=== PATIENT | male | born 1975 | race Caucasian/White ===

== ENCOUNTER 2016-11-02 12:05 | Emergency (ER) | payer OTHER ==
[~2016-11-02] VITALS: Ht 177.8 cm; Wt 85.7 kg
--- NOTE | ~2016-11-02 | CT2 ---
[facility] A Service of [facility] RADIOLOGY TEXT RESULTS PATIENT: ABHIJEET MADDOX LOCATION: [facility] : 73 UNIT #: [id number] AGE: [address]: Ashok Shafer MD SEX: M ORDER DR: [id number] [facility] [address] [place], [place] [address] [id number] MR#: [id number] #: [id number] NAME: ABHIJEET MADDOX : 1975 SEX: M STUDY DATE/TIME: 11/02/2016 14:30 UNIT: [facility] ROOM: STUDY DESCRIPTION: CT Abd and Pelv W Cont Attending Physician: Ashok Shafer M.D. Ordering Physician: Ashok Shafer M.D. Primary Care Physician: Primary Care Physician No MEDICAL IMAGING REPORT This report is preliminary unless electronic signature is present EXAM CT abdomen and pelvis with contrast HISTORY Lower abdominal pain for 2 weeks. No recent bowel movements. COMPARISON None. FINDINGS Axial images performed through the abdomen and pelvis following IV and oral contrast. Multiplanar reconstructions. This CT exam was performed with one or more of the following radiation dose reduction techniques: Automatic exposure control, adjustment of mA and/or kV according to patient size, and iterative reconstruction. ABDOMEN: Lung bases remarkable for a small amount of right basilar atelectasis or infiltrate. No effusions. Liver demonstrates diffuse fatty infiltration. Spleen unremarkable. The gallbladder is distended. Pancreas, kidneys and adrenal glands unremarkable. Nzgdh-gl-trlpglhv amount of ascites. Increased small and large bowel gas and fluid, but the presence of contrast extending all the way to the rectum excludes a high-grade obstruction. There is diffuse colonic wall thickening, nonspecific; this is most prominent in the descending colon. This could represent a component of colitis, but is nonspecific and does not appear to correspond to the patient's clinical symptoms. Retroperitoneum unremarkable. PELVIS: Bladder, prostate appear normal. Osseous structures remarkable for high-grade spinal stenosis L3-4. This is due to a combination of disc protrusion and facet disease. IMPRESSION [facility] A Service of [facility] RADIOLOGY TEXT RESULTS PATIENT: ABHIJEET MADDOX [id number] 73 UNIT #: [id number] AGE: [address]: Ashok Shafer MD SEX: M ORDER DR: 1. Diffuse fatty infiltration of liver with a moderate amount of ascites. This could be indicative of underlying hepatic dysfunction, correlate clinically. 2. Increased small and large bowel gas and fluid, but the presence of contrast all the way to the rectum excludes a high-grade obstruction. There is diffuse colonic wall thickening. This is nonspecific could represent colitis, but this does not appear to fit with the patient's clinical presentation, this could be related to hypoproteinemia and third spacing of fluid. Further evaluation with colonoscopy may be warranted. 3. Focal parenchymal opacity right lower lobe probably infectious in etiology or represent atelectasis. Clinical and imaging followup is recommended to confirm resolution, as underlying neoplastic process cannot be entirely excluded. Dictated by... Gloria Stanley M.D. THIS IS AN ELECTRONICALLY VERIFIED REPORT Gloria Stanley M.D. at 11/02/2016 10:02 PM [place]/justin TD: 11/02/2016 16:58 JOB #: [id number] MEDICAL IMAGING REPORT Page 1 of 1 COPY
[~2016-11-02 12:05] MED LIST: ATIVAN0.5 MG PO; BENTYL10 MG PO; LISINOPRIL-HCTZ1 T16 PO; MULTI-VITAMIN1 EAC1 PO; ZOFRAN PO
[2016-11-02 12:49] LABS: BASOPHIL# 0.1 X10e3 (0-0.3); BASOPHIL% 0.9 % (0-2.5); DIFF IND YES; EOSINOPHIL# 0.1 X10e3 (0-0.7); EOSINOPHIL% 0.6 % (0.0-7.0); HEMOGLOBIN 13.4 gm/dL (13.0-16.0); LYMPHOCYTE# 5.7 X10e3 (1.0-3.5); LYMPHOCYTE% 63.4 % (17.0-45.0); MEAN CELL VOLUME 99.1 FL (83-96); MEAN CORPUSCULAR HEMOGLOBIN 34.8 PG (28-34); MEAN CORPUSCULAR HGB CONC 35.2 g/dL (30-36); MEAN PLATELET VOLUME 8.7 FL (6.5-11.5); MONOCYTE# 0.5 X10e3 (0-1.0); NEUTROPHIL# 2.6 X10e3 (1.5-7.1); NEUTROPHIL% 29.1 % (40-75); PLATELET COUNT 213 X10e3 (140-420); RED BLOOD COUNT 3.83 X10e (3.90-5.60); RED CELL DISTRIBUTION WIDTH 23.9 % (11.0-15.5)
[2016-11-02 13:11] LABS: ALBUMIN SERUM 2.6 g/dL (3.5-5.0); BILIRUBIN, DIRECT 2.7 mg/dL (0.0-0.2); BILIRUBIN,INDIRECT 2.4 mg/dL (0.0-0.9); BILIRUBIN,TOTAL 5.1 mg/dL (0.2-2.0); CALCIUM SERUM 7.7 mg/dL (8.4-10.2); CREATININE SERUM 0.8 mg/dL (0.6-1.4); GLOM FILT RATE Estimated 110.2 mL/min (>60); POTASSIUM 3.3 mmol/L (3.5-5.1); PROTEIN TOTAL SERUM 6.1 g/dL (6.0-8.3)
[2016-11-02 13:14] LABS: PLATELET ESTIMATE NORMAL (NORMAL); TARGET CELLS MOD
[2016-11-02 13:15] LABS: HYPOCHROMIA SL
== END 2016-11-02 15:24 | disposition home or self-care (01) ==
LOC: CED 12:05
PROVIDERS: Emergency Medicine
DX: K52.9 Noninfective gastroenteritis and colitis, unspecified (principal); I10 Essential (primary) hypertension; F17.200 Nicotine dependence, unspecified, uncomplicated; Z79.899 Other long term (current) drug therapy
CPT/HCPCS: 36415; 74177; 80048; 80076; 82140; 82150; 83690; 85025; 99284; Q9967

== ENCOUNTER 2016-11-25 11:52 | Inpatient (IN) | payer OTHER ==
[~2016-11-25] VITALS: Ht 177.8 cm; Wt 89.0 kg
--- NOTE | ~2016-11-25 | DS ---
Unit #: [id number] #: [id number] Patient: ABHIJEET MADDOX [id number] [address] [address] [id number] I MR#: [id number] NAME: ABHIJEET MADDOX ROOM: 560 Age: 41 Sex: M Admission Date: 11/25/2016 : 1975 Discharge Date: 11/29/2016 Attending Physician: Shahram Carpenter M.D. Primary Care Physician: No Primary Care Physician DISCHARGE SUMMARY REASON FOR ADMISSION Vomiting/elevated blood pressure. HISTORY OF PRESENT ILLNESS/HOSPITAL COURSE 41-year-old male, underlying history of chronic alcohol abuse, alcoholic hepatitis, hypertension, relatively noncompliant with medications, presented secondary to intractable nausea, vomiting, diarrhea and increased abdominal pain. He was noted to have an elevated blood pressure on day of admission. He was appropriately treated secondary to elevated blood pressure, was continued on p.o. medications secondary to chronic alcohol abuse. He was placed initially on CIFL protocol and telemetry floor. He has otherwise done well, has had no acute need for IV medications over the past 24 hours. He appears clinically stable. He is alert and oriented x3. His blood pressure has since then been more stable and he is clinically stable for discharge home. Overall, his prognosis is guarded at best secondary to his lack of insight into disease process. I have encouraged him strongly to abstain from further alcohol use. I have encouraged him to follow up with primary care physician in regards to his blood pressure issues. At time of discharge, his LFTs show an AST and ALT of 126 and 70 respectively. His albumin level is 2.3. Hemoglobin 12.5, MCV 106, platelets are 137. FINAL DISCHARGE DIAGNOSIS 1. Intractable nausea, vomiting, now resolved, likely viral gastroenteritis. 2. Accelerated hypertension on admission, now resolved. 3. Longstanding history of noncompliance. 4. Alcohol abuse. 5. Alcoholic hepatitis. FINAL DISCHARGE MEDICATIONS 1. Librium 25 mg p.o. b.i.d. x5 days. 2. Multivitamin daily. 3. Norvasc 10 mg p.o. daily. DISCHARGE CONDITION Stable. DISCHARGE DISPOSITION Home. Unit #: [id number] #: [id number] Patient: ABHIJEET MADDOX Follow up PCP 7-10 days. Dictated by... Imran S. Gregg, M.D. ISN/travon TD: 12/01/2016 16:54 JOB #: [id number] DISCHARGE SUMMARY Page 1 of 1 X Milena Escobedo MD X DISCHARGE SUMMARY
--- NOTE | ~2016-11-25 | HP ---
Unit #: [id number] #: [id number] Patient: ABHIJEET MADDOX [id number] [facility]. [place], [place] [address] [id number] I MR#: [id number] NAME: ABHIJEET MADDOX ROOM: 560 Age: 41 Sex: M Admission Date: 11/25/2016 : 1975 Attending Physician: Analia Lacey M.D. HISTORY AND PHYSICAL CHIEF COMPLAINT Vomiting, elevated blood pressure. HISTORY OF PRESENT ILLNESS The patient is a 41-year-old male with a past medical history of alcohol abuse, alcoholic hepatitis, and hypertension, who presented to the emergency department for evaluation of the above. The patient states that his last drink was on November 23, 2016, and consisted of six beers. He states that since that time he has had nausea, vomiting, diarrhea, and abdominal pain. He describes the abdominal pain as "tight." It is in the lower abdomen. There are no exacerbating or alleviating factors. He denies chest pain, no cough, no fever. He denies blood in the stool or black tarry stool. He has had chills but no documented fever. In the emergency department, initial pulse and blood pressure were 100 and 165/109, respectively. He received one liter of normal saline, as well as 40 mg of Protonix, 4 mg of Zofran, a total of 3 mg of Ativan, 25 mg of Librium, and 25 mg of Phenergan. Laboratory is notable for AST and ALT of 480 and 176, respectively, alkaline phosphatase 305, and total bilirubin 4.9. He is being admitted to [facility] for evaluation and further treatment. PAST MEDICAL HISTORY 1. Admission to [facility] in March 2016 for seizure. There are no records, but per the patient, it sounds like it was related to alcohol withdrawal. He was not placed on any antiepileptic medication. He has not had a seizure since that time. 2. Admission to [facility] February 03-2014, for alcoholic liver disease. 3. Hypertension. PAST SURGICAL HISTORY Chest tube placement and removal. SOCIAL HISTORY The patient lives with his parents. He smokes a half pack of cigarettes daily. He drinks a six-pack daily. His last drink was November 23, 2016. He denies illicit drug use. He works at the [employer]. FAMILY HISTORY Notable for both parents having myocardial infarctions in their 60s. His dad also has congestive heart failure. Unit #: [id number] #: [id number] Patient: ABHIJEET MADDOX ALLERGIES No known allergies. HOME MEDICATIONS 1. Lisinopril and hydrochlorothiazide 20/25 daily. 2. Multivitamin daily. 3. Zofran 4 mg q.6 hours p.r.n. 4. Bentyl 10 mg t.i.d. p.r.n. 5. Ativan 0.5 mg t.i.d. p.r.n. REVIEW OF SYSTEMS A complete review of systems is negative except as indicated in the HPI. The patient states that he is interested in rehab. He was in rehab in 2012. He denies ever having ascites. He has never had a paracentesis. He also denies ever having endoscopy. PHYSICAL EXAMINATION VITAL SIGNS: Temperature is 98.4, pulse 100, respirations 18, blood pressure 165/109, and oxygen saturation 100% on room air. GENERAL: Patient is a male who is awake, alert, and in no acute distress. HEENT: Head is atraumatic. Sclerae are icteric. NECK: Supple. Trachea is midline. CARDIOVASCULAR: Tachycardic in the 110s. He does have a 3/6 systolic ejection murmur. LUNGS: Clear to auscultation bilaterally with no increased work of breathing. ABDOMEN: Soft and nontender with bowel sounds present in all four quadrants. EXTREMITIES: Nontender with no pedal edema. NEUROLOGIC: Patient is awake and alert. He follows commands. He is somewhat tremulous. PSYCHIATRIC: Mood and affect are normal. Patient is cooperative. SKIN: Skin of examined areas is warm and dry. DIAGNOSTIC STUDIES LABORATORY: Complete blood count is notable for MCV of 104.9 with hemoglobin of 14.7. Comprehensive metabolic panel notable for sodium of 130, chloride 92, glucose 120, BUN and creatinine 8 and 1.1, respectively, calcium is 7.9, AST and ALT 480 and 176, respectively, alkaline phosphatase 305, total bilirubin 4.9, and albumin is 3. Lipase 32. Urinalysis notable for trace leukocyte esterase and trace protein. ASSESSMENT The patient is a 41-year-old male with: 1. Nausea, vomiting, and diarrhea. 2. Alcohol withdrawal. The patient received 25 mg of Librium in the emergency department. 3. Alcoholic hepatitis. The patient's AST and ALT are 480 and 176, respectively. AST has been in the 300s, most recently 314 on November 02, 2016. It is 480 today. ALT has been in the 100s, most recently 112 on November 02, 2016. It is 176 today. Alkaline phosphatase 305 today. It has been in the 300-400 range, 328 on November 02, 2016. 4. Hypertension. 5. Murmur. 6. Tobacco abuse. Unit #: [id number] #: [id number] Patient: ABHIJEET MADDOX PLAN 1. Admit for observation to intermediate level. 2. Advance diet to liquids as tolerated. 3. P.r.n. Zofran. 4. Alcohol withdrawal protocol to start now. 5. Librium 25 mg p.o. q.6 hours. 6. Check magnesium level. 7. EKG and cardiac enzymes. 8. P.r.n. hydralazine. 9. Check INR. 10. A 2D echo for further evaluation of murmur. 11. Consult Dr. Gonzáles regarding alcohol abuse. 12. Repeat labs in the morning including INR and magnesium. 13. SCDs for DVT prophylaxis. 14. Additional workup and consultants based on above. 1. Dictated by Pushpa Eduardo/david TD: 11/25/2016 21:50 JOB #: [id number] HISTORY AND PHYSICAL Page 1 of 1 X Analia Lacey MD X HISTORY AND PHYSICAL
--- NOTE | ~2016-11-25 | CO ---
Unit #: [id number] #: [id number] Patient: HILARIO MADODX [id number] [facility] [address] [place], [place] [address] [id number] I MR#: [id number] NAME: HILARIO MADDOX ROOM: 560 Age: 41 Sex: M Admission Date: 11/25/2016 : 1975 Attending Physician: Shahram Carpenter M.D. Consultation Date: 11/26/2016 CONSULTATION REPORT DISCUSSION Hilario Maddox is a 41-year-old male, seen on 11/26/2016 in room 561 on 11/26/2016 at [facility]. The patient was dressed in hospital attire, lying comfortably in bed. The patient reported that he was drinking 6 beers a day. Currently, having withdrawal symptoms, anxious, nervous, sad, and depressed, but denied any thoughts of harming self or others. Denied any psychotic symptom or any suicidal or homicidal ideation. The patient's vital signs; temperature 97.6, pulse 85, respirations 18, blood pressure 157/108, and oxygen saturation 100%. The patient was admitted with vomiting and elevated blood pressure. The patient reported alcohol abuse, alcohol hepatitis, hypertension. The patient denied any use of any illicit drugs. PAST PSYCHIATRIC HISTORY Remarkable for history of alcohol abuse. No history of any depression or suicide attempt. MEDICAL HISTORY History of alcohol liver disease, history of seizure in 03/2016, hypertension. MEDICATION HISTORY The patient is on lisinopril, Zofran, Bentyl, Ativan p.r.n. FAMILY HISTORY AND SOCIAL HISTORY The patient reports that he has a good support system. No history of abuse. History of alcohol abuse as mentioned above. REVIEW OF SYSTEMS Complete review of system is unremarkable. MENTAL STATUS EXAMINATION Vital signs; temperature 98.6, pulse 78, respirations 18, blood pressure 128/88. General appearance; the patient dressed casually, lying comfortably in bed, seemed somewhat anxious. Attention span and concentration, fair. Speech, regular rate and coherent. Oriented in time, place, and person. Mood and affect, sad and dysphoric. Thought process, coherent. Thought content, the patient denied any thoughts of harming self or others. Denied any hallucination. Recent and remote memory, fair. Language, intact. Fund of knowledge, fair. Insight and judgment, fair to slightly impaired. DIAGNOSES Psychiatric: Alcohol use disorder, severe, F10.20; mood disorder, not Unit #: [id number] #: [id number] Patient: HILARIO MADDOX otherwise specified, F32.9. Secondary diagnosis: Deferred. Medical diagnosis: Please refer to H and P. Stressors: Psychosocial stressor. ASSESSMENT/PLAN 1. Supportive psychotherapy and psychoeducation provided to the patient. 2. Educated about benefits and side effects of medication and course and prognosis of illness. 3. Advised to continue with the CIWA protocol. If needed, consider further adjustment of medication. Plan to stabilize the patient and consider follow up in [facility] program at [facility] and also given telephone #[phone]. Please feel free to call if any questions, telephone #[phone]. Dictated by... Pushpa Rodriguez/abhay TD: 11/27/2016 19:53 JOB #: [id number] CONSULTATION REPORT Page 1 of 1 X Tyrone Gonzáles MD X CONSULTATION REPORT
--- NOTE | ~2016-11-25 | EKG ---
PATIENT: ABHIJEET MADDOX UNIT #: [id number] Ventricular Rate: 107 BPM Atrial Rate: 107 BPM P-R Interval: 142 ms QRS Duration: 82 ms Q-T Interval: 360 ms QTC Calculation(Bezet): 480 ms P [place]: 50 degrees Calculated R [place]: 0 degrees Calculated T [place]: 36 degrees Diagnosis Line: Sinus tachycardia Diagnosis Line: Otherwise normal ECG Diagnosis Line: No previous ECGs available Diagnosis Line: Confirmed by TIMOTEO PEREZ MD ([id number]) on 11/26/2016 Diagnosis Line: 7:18:15 PM INTERPRETING MD: ANA HADLEY
--- NOTE | ~2016-11-25 | CR63 ---
[facility] A Service of [facility] RADIOLOGY TEXT RESULTS PATIENT: ABHIJEET MADDOX LOCATION: B 560-01 : [birth year] UNIT #: [id number] AGE: [address]: Shahram Carpenter MD SEX: M ORDER DR: [id number] [facility] [address] [place], [place] [address] [id number] I MR#: [id number] Acc #: [id number] NAME: ABHIJEET MADDOX : 1975 SEX: M STUDY DATE/TIME: 11/27/2016 16:37 UNIT: [facility] ROOM: [facility] STUDY DESCRIPTION: CR Chest 2 View Attending Physician: Shahram Carpenter M.D. Ordering Physician: Shahram Carpenter M.D. Primary Care Physician: Primary Care Physician No MEDICAL IMAGING REPORT This report is preliminary unless electronic signature is present EXAM Two-view chest HISTORY Back pain, cough, shortness of air for 2 days. FINDINGS Two views of the chest demonstrates bibasilar atelectasis. Mid and upper lung zones are clear. Heart and mediastinum unremarkable. No invasive tubes or lines. No pneumothorax. Osseous structures unremarkable. IMPRESSION Bibasilar atelectasis. Dictated by... Gloria Stanley M.D. THIS IS AN ELECTRONICALLY VERIFIED REPORT Gloria Stanley M.D. at 11/28/2016 6:54 PM [place]/elsa TD: 11/27/2016 22:43 JOB #: [id number] MEDICAL IMAGING REPORT Page 1 of 1 COPY
--- NOTE | ~2016-11-25 | CO ---
Unit #: [id number] #: [id number] Patient: HILARIO MADDOX [id number] [facility] [address] [place], [place] [address] [id number] I MR#: [id number] NAME: HILARIO MADDOX ROOM: 560 Age: 41 Sex: M Admission Date: 11/25/2016 : 1975 Attending Physician: Shahram Carpenter M.D. Consultation Date: 11/28/2016 CONSULTATION REPORT REASON FOR CONSULTATION Followup. DISCUSSION Mr. Hilario Maddox is a 41-year-old white male, seen in room 560, bed 1 on 11/28/2016 at [facility]. The patient was admitted with nausea, vomiting, diarrhea, and alcohol withdrawal. The patient reports that he is feeling better, dressed casually in hospital attire, lying comfortably in bed. The patient denied any thoughts of harming self or others, but agreeable to come [facility]. The patient's vital signs; temperature 97.8, pulse 91, respirations 16, blood pressure 159/113, and oxygen saturation 97%. REVIEW OF SYSTEMS Complete review of system unremarkable. MENTAL STATUS EXAMINATION General appearance; the patient dressed casually, lying comfortably in bed. Attention span and concentration, fair. Speech, regular rate and coherent. Oriented in time, place, and person. Mood and affect; sad, dysphoric, anxious. Thought process, coherent. Thought content, the patient denied any thoughts of harming self or others. Recent and remote memory, fair. Language, intact. Fund of knowledge, fair. Insight and judgment, fair to slightly impaired. DIAGNOSES Psychiatric: Alcohol use disorder, severe, F10.20; major depressive disorder, recurrent, severe, F32.9. Secondary diagnosis: Deferred. Medical diagnosis: Please refer to H and P. ASSESSMENT/PLAN 1. Supportive psychotherapy and psychoeducation provided to the patient. 2. Educated about benefits and side effects of medication and course and prognosis of illness. Continue with current treatment protocol. If needed, consider further adjustment of medication. The patient to follow up at [facility] upon discharge and given information and telephone #[phone]. Please feel free to call if any question, telephone #[phone]. Unit #: [id number] #: [id number] Patient: HILARIO MADDOX Dictated by... Pushpa Rodriguez/abhay TD: 11/28/2016 17:45 JOB #: [id number] CONSULTATION REPORT Page 1 of 1 X Tyrone Gonzáles MD X CONSULTATION REPORT
[2016-11-25 12:31] LABS: BASOPHIL# 0.1 X10e3 (0-0.3); EOSINOPHIL% 0.5 % (0.0-7.0); HEMATOCRIT 42.5 % (38.0-50.0); HEMOGLOBIN 14.7 gm/dL (13.0-16.0); LYMPHOCYTE% 41.9 % (17.0-45.0); MEAN CELL VOLUME 104.9 FL (83-96); MEAN CORPUSCULAR HEMOGLOBIN 36.3 PG (28-34); MEAN CORPUSCULAR HGB CONC 34.6 g/dL (30-36); MEAN PLATELET VOLUME 8.7 FL (6.5-11.5); MONOCYTE# 0.5 X10e3 (0-1.0); MONOCYTE% 5.4 % (3.0-12.0); NEUTROPHIL# 4.9 X10e3 (1.5-7.1); NEUTROPHIL% 51.2 % (40-75); PLATELET COUNT 251 X10e3 (140-420); RED BLOOD COUNT 4.05 X10e (3.90-5.60); RED CELL DISTRIBUTION WIDTH 16.5 % (11.0-15.5); WHITE BLOOD COUNT 9.6 X10e3 (4.0-10.5)
[2016-11-25 12:35] LABS: DIFF IND NO
[2016-11-25 13:52] LABS: BILIRUBIN, DIRECT 2.6 mg/dL (0.0-0.2); BILIRUBIN,INDIRECT 2.3 mg/dL (0.0-0.9); BILIRUBIN,TOTAL 4.9 mg/dL (0.2-2.0); BUN/CREATININE RATIO 7.27; CALCIUM SERUM 7.9 mg/dL (8.4-10.2); CREATININE SERUM 1.1 mg/dL (0.6-1.4); GLOM FILT RATE Estimated 82.4 mL/min (>60); POTASSIUM 3.6 mmol/L (3.5-5.1); PROTEIN TOTAL SERUM 6.8 g/dL (6.0-8.3)
[2016-11-25 15:23] LABS: URINE SOURCE CLEAN CATCH
[2016-11-25 15:34] LABS: URINE APPEARANCE CLEAR; URINE BLOOD NEG (NEG); URINE COLOR DK YELLOW; URINE GLUCOSE NEG (NEG); URINE KETONE NEG (NEG); URINE LEUKOCYTE ESTERASE TRACE (NEG); URINE NITRATE NEG (NEG); URINE PROTEIN TRACE (NEG); URINE SPECIFIC GRAVITY 1.024 (1.003-1.035)
[2016-11-25 15:37] LABS: U HYALINE CASTS AUWI 0-2 /[LPF]; URINE BACTERIA AUWI NEG (NEGATIVE); URINE SQUAMOUS EPITHELIAL CELL NONE SEEN /[HPF]; UWBCS1 AUWI 0-2 (0-5)
[2016-11-25 15:57] LABS: CULTURE INDICATED? NO; URINE BILIRUBIN POS (NEG)
[2016-11-25 15:58] LABS: URINE ICTOTEST POS (NEG)
[2016-11-25 20:55] LABS: %MB 2.6 % (0.0-4.0); MB 6.2 ng/ml
[2016-11-26 01:33] LABS: HEMATOCRIT 36.3 % (38.0-50.0); MEAN CELL VOLUME 104.8 FL (83-96); MEAN CORPUSCULAR HEMOGLOBIN 35.9 PG (28-34); MEAN CORPUSCULAR HGB CONC 34.2 g/dL (30-36); MEAN PLATELET VOLUME 9.1 FL (6.5-11.5); RED BLOOD COUNT 3.46 X10e (3.90-5.60); RED CELL DISTRIBUTION WIDTH 16.3 % (11.0-15.5); WHITE BLOOD COUNT 7.2 X10e3 (4.0-10.5)
[2016-11-26 01:35] LABS: HEMOGLOBIN 12.4 gm/dL (13.0-16.0)
[2016-11-26 02:14] LABS: ALBUMIN SERUM 2.4 g/dL (3.5-5.0); BILIRUBIN,TOTAL 4.9 mg/dL (0.2-2.0); BUN/CREATININE RATIO 8.88; CALCIUM SERUM 7.4 mg/dL (8.4-10.2); CREATININE SERUM 0.9 mg/dL (0.6-1.4); MAGNESIUM 1.2 mg/dL (1.6-3.0); POTASSIUM 3.5 mmol/L (3.5-5.1); PROTEIN TOTAL SERUM 5.6 g/dL (6.0-8.3)
[2016-11-26 02:31] LABS: %MB 2.4 % (0.0-4.0); MB 4.9 ng/ml
[2016-11-26 07:52] LABS: HEMOGLOBIN 12.4 gm/dL (13.0-16.0); MEAN CELL VOLUME 104.5 FL (83-96); MEAN CORPUSCULAR HGB CONC 35.4 g/dL (30-36); RED BLOOD COUNT 3.35 X10e (3.90-5.60); WHITE BLOOD COUNT 5.5 X10e3 (4.0-10.5)
[2016-11-26 08:33] LABS: ALBUMIN SERUM 2.3 g/dL (3.5-5.0); BILIRUBIN,TOTAL 5.1 mg/dL (0.2-2.0); BUN/CREATININE RATIO 8.88; CALCIUM SERUM 7.5 mg/dL (8.4-10.2); CREATININE SERUM 0.9 mg/dL (0.6-1.4); MAGNESIUM 1.2 mg/dL (1.6-3.0); POTASSIUM 3.7 mmol/L (3.5-5.1); PROTEIN TOTAL SERUM 5.4 g/dL (6.0-8.3)
[2016-11-26 09:15] LABS: %MB 2.5 % (0.0-4.0); MB 3.8 ng/ml
[2016-11-27 05:37] LABS: HEMOGLOBIN 12.2 gm/dL (13.0-16.0); MEAN CELL VOLUME 105.4 FL (83-96); MEAN CORPUSCULAR HEMOGLOBIN 36.7 PG (28-34); MEAN CORPUSCULAR HGB CONC 34.8 g/dL (30-36); MEAN PLATELET VOLUME 9.5 FL (6.5-11.5); RED BLOOD COUNT 3.32 X10e (3.90-5.60); RED CELL DISTRIBUTION WIDTH 15.8 % (11.0-15.5); WHITE BLOOD COUNT 4.4 X10e3 (4.0-10.5)
[2016-11-27 05:43] LABS: ALBUMIN SERUM 2.2 g/dL (3.5-5.0); BILIRUBIN,TOTAL 3.7 mg/dL (0.2-2.0); BUN/CREATININE RATIO 8.57; CALCIUM SERUM 7.7 mg/dL (8.4-10.2); CREATININE SERUM 0.7 mg/dL (0.6-1.4); GLOM FILT RATE Estimated 116.4 mL/min (>60); MAGNESIUM 1.5 mg/dL (1.6-3.0); POTASSIUM 3.7 mmol/L (3.5-5.1); PROTEIN TOTAL SERUM 5.4 g/dL (6.0-8.3)
[2016-11-27 15:13] LABS: AMPHETAMINE NEG (NEG); BARBITURATES NEG (NEG); BENZODIAZEPINES POS (NEG); COCAINE NEG (NEG); MARIJUANA NEG (NEG); OPIATES NEG (NEG); TRICYCLIC ANTIDEPRESSANTS NEG (NEG); U METHADONE NEG (NEG)
[2016-11-28 06:32] LABS: MEAN CELL VOLUME 106.2 FL (83-96); MEAN CORPUSCULAR HEMOGLOBIN 36.3 PG (28-34); MEAN CORPUSCULAR HGB CONC 34.2 g/dL (30-36); MEAN PLATELET VOLUME 9.6 FL (6.5-11.5); RED BLOOD COUNT 3.29 X10e (3.90-5.60); RED CELL DISTRIBUTION WIDTH 15.3 % (11.0-15.5); WHITE BLOOD COUNT 4.4 X10e3 (4.0-10.5)
[2016-11-28 07:08] LABS: ALBUMIN SERUM 2.1 g/dL (3.5-5.0); BILIRUBIN,TOTAL 3.2 mg/dL (0.2-2.0); BUN/CREATININE RATIO 8.57; CREATININE SERUM 0.7 mg/dL (0.6-1.4); GLOM FILT RATE Estimated 116.4 mL/min (>60); MAGNESIUM 1.6 mg/dL (1.6-3.0); POTASSIUM 3.7 mmol/L (3.5-5.1); PROTEIN TOTAL SERUM 5.2 g/dL (6.0-8.3)
[2016-11-29 05:33] LABS: HEMOGLOBIN 12.5 gm/dL (13.0-16.0); MEAN CELL VOLUME 106.4 FL (83-96); MEAN CORPUSCULAR HEMOGLOBIN 36.8 PG (28-34); MEAN CORPUSCULAR HGB CONC 34.6 g/dL (30-36); MEAN PLATELET VOLUME 9.8 FL (6.5-11.5); RED BLOOD COUNT 3.39 X10e (3.90-5.60); RED CELL DISTRIBUTION WIDTH 15.8 % (11.0-15.5); WHITE BLOOD COUNT 5.7 X10e3 (4.0-10.5)
[2016-11-29 06:43] LABS: ALBUMIN SERUM 2.3 g/dL (3.5-5.0); BILIRUBIN,TOTAL 2.9 mg/dL (0.2-2.0); BUN/CREATININE RATIO 8.88; CALCIUM SERUM 8.1 mg/dL (8.4-10.2); CREATININE SERUM 0.9 mg/dL (0.6-1.4); MAGNESIUM 1.7 mg/dL (1.6-3.0); POTASSIUM 3.3 mmol/L (3.5-5.1); PROTEIN TOTAL SERUM 5.6 g/dL (6.0-8.3)
[2016-11-29] MEDS ORDERED: NORVASC10 MG PO (09:50)
[2016-11-29] MEDS ORDERED: LIBRIUM25 MG PO (09:51)
== END 2016-11-29 13:57 | disposition home or self-care (01) | DRG 897 ==
LOC: CED 11:52 → CEDOF 19:00 → C5B 19:00 → CED 19:00 → C5B 19:00 → CEDOF 19:38 → CED 19:38 → C5B 20:42 → CEDOF 20:42 → C5B 11-26 07:33
PROVIDERS: Family Medicine; Internal Medicine; Nurse Practitioner; Student in an Organized Health Care Education/Training Program
PROC: B246ZZ4 Ultrasonography of Right and Left Heart, Transesophageal (ICD-10-PCS; principal; 2016-11-26)
DX: F10.239 Alcohol dependence with withdrawal, unspecified (principal); K70.10 Alcoholic hepatitis without ascites; K75.81 Nonalcoholic steatohepatitis (NASH); E83.42 Hypomagnesemia; E87.1 Hypo-osmolality and hyponatremia; I10 Essential (primary) hypertension; Z91.19 Patient's noncompliance with other medical treatment and regimen; E66.01 Morbid (severe) obesity due to excess calories; F39 Unspecified mood [affective] disorder; Z71.41 Alcohol abuse counseling and surveillance of alcoholic; A08.4 Viral intestinal infection, unspecified; Z68.25 Body mass index [BMI] 25.0-25.9, adult; F17.210 Nicotine dependence, cigarettes, uncomplicated
CPT/HCPCS: 36415; 71020; 80048; 80053; 80076; 80307; 81003; 82550; 82553; 83690; 83735; 84484; 85025; 85027; 85730; 93005; 93306; 96361; 96374; 96375; 99284; C9113; J0360; J1040; J1885; J2060; J2405; J3475